=== PATIENT | male | born 1985 | race Caucasian/White ===

== ENCOUNTER 2017-09-25 11:58 | Emergency (ER) | payer MEDICAID ==
[~2017-09-25] VITALS: Ht 180.3 cm; Wt 91.0 kg
[2017-09-25] MEDS ORDERED: SODIUM CHLORIDE 0.9% 1,000 ML IV ONE (12:11)
[2017-09-25] MEDS ORDERED: KETOROLAC 30MG/ML VIAL IV STA (12:11)
[2017-09-25] MEDS ORDERED: ONDANSETRON HCL 4MG/2ML VIAL IV STA (12:11)
[2017-09-25] MEDS ORDERED: SUMATRIPTAN SUCCINATE 6MG/0.5ML VIAL SUBCUT ONE (12:15)
[2017-09-25 12:34] LABS: BASOPHILS % 1.1 % (0.0-2.0); EOSINOPHILS % 3.5 % (0.0-5.0); HEMATOCRIT. 43.4 % (42.0-52.0); HEMOGLOBIN. 14.9 g/dL (14.0-18.0); LYMPHOCYTES % 41.1 % (20.0-50.0); MEAN CORPUSCULAR HEMOGLOBIN 29.4 pg (28.0-32.0); MEAN CORPUSCULAR VOLUME 85.4 fL (80.0-94.0); MEAN PLATELET VOLUME 8.3 fl (7.4-10.4); MONOCYTES % 11.2 % (2.0-8.0); NEUTROPHILS % 43.1 % (40.0-76.0); PLATELET 360 x1000/uL (130-400); RED BLOOD CELL COUNT 5.08 mill/uL (4.7-6.1); RED CELL DISTRIBUTION WIDTH 13.1 % (11.6-14.6)
[2017-09-25 12:40] LABS: CHLORIDE 106 mEq/L (98-107)
[2017-09-25 12:41] LABS: INR 1.1
[2017-09-25 12:49] LABS: CARBON DIOXIDE 26 mEq/L (21-32)
[2017-09-25 15:50] VITALS: BP 147/89
== END 2017-09-25 15:56 | disposition home or self-care (01) ==
LOC: ER 12:46
DX: R51 Headache (principal)
CPT/HCPCS: 36415; 70450; 80053; 85025; 85610; 96361; 96372; 96374; 96375; 99285; J1885; J2405; J3030; J7030; Z7610

== ENCOUNTER 2017-09-27 11:52 | Emergency (ER) | payer MEDICAID ==
[~2017-09-27] VITALS: Ht 172.7 cm; Wt 91.0 kg
[2017-09-27 12:54] VITALS: BP 150/99
== END 2017-09-27 16:34 | disposition left against medical advice (07) ==
LOC: ER 12:00
DX: R51 Headache (principal); Z53.21 Procedure and treatment not carried out due to patient leaving prior to being seen by health care provider

== ENCOUNTER 2019-04-21 22:52 | Emergency (ER) | payer MEDICAID ==
[~2019-04-21] VITALS: Ht 180.3 cm; Wt 107.5 kg
[2019-04-22] MEDS ORDERED: SODIUM CHLORIDE 0.9% 1,000 ML IV ONE (00:31)
[2019-04-22] MEDS ORDERED: KETOROLAC 30MG/ML VIAL IV STA (00:31)
[2019-04-22 00:39] LABS: BASOPHILS % 0.9 % (0.0-2.0); EOSINOPHILS % 4.5 % (0.0-5.0); HEMOGLOBIN. 14.3 g/dL (14.0-18.0); LYMPHOCYTES % 41.6 % (20.0-50.0); MEAN CORPUSCULAR VOLUME 85.8 fL (80.0-94.0); MEAN PLATELET VOLUME 8.7 fl (7.4-10.4); MONOCYTES % 10.6 % (2.0-8.0); NEUTROPHILS % 42.4 % (40.0-76.0); PLATELET 344 x1000/uL (130-400); RED BLOOD CELL COUNT 4.77 mill/uL (4.7-6.1); RED CELL DISTRIBUTION WIDTH 12.9 % (11.6-14.6)
[2019-04-22 00:41] LABS: CHLORIDE 107 mEq/L (98-107)
[2019-04-22 04:02] VITALS: BP 129/92
== END 2019-04-22 04:23 | disposition home or self-care (01) ==
LOC: ER 22:52
DX: R10.11 Right upper quadrant pain (principal); I10 Essential (primary) hypertension
CPT/HCPCS: 36415; 76705; 80053; 83690; 85025; 96374; 99284; J1885; J7030

== ENCOUNTER 2019-06-12 13:47 | Emergency (ER) | payer MEDICAID, OTHER ==
[~2019-06-12] VITALS: Ht 177.8 cm; Wt 109.0 kg
[2019-06-12] MEDS ORDERED: MAGNESIUM/ALUMINUM HYDROXIDE/SIMETHICONE 30ML UDC PO STA (15:08)
[2019-06-12] MEDS ORDERED: VISCOUS LIDOCAINE 2% 15 ML UDC PO STA (15:08)
[2019-06-12] MEDS ORDERED: FAMOTIDINE 20MG TABLET PO ONE (15:15)
[2019-06-12] MEDS ORDERED: LIDOCAINE HCL 1% 20ML VIAL (Pyxis) INJ INFIL ONE (15:15)
[2019-06-12] MEDS ORDERED: ONDANSETRON 4MG ODT PO ONE (15:15)
[2019-06-12] MEDS ORDERED: PANTOPRAZOLE 40MG DR TABLET PO ONE (17:15)
[2019-06-12 17:30] VITALS: BP 131/78
== END 2019-06-12 17:30 | disposition home or self-care (01) ==
LOC: ER 13:47
DX: R10.13 Epigastric pain (principal); R11.0 Nausea; L02.31 Cutaneous abscess of buttock; I10 Essential (primary) hypertension
CPT/HCPCS: 10060; 76705; 99284; J3490; Q0162

== ENCOUNTER 2019-06-18 19:58 | Emergency (ER) | payer MEDICAID ==
[~2019-06-18] VITALS: Ht 177.8 cm; Wt 109.0 kg
[2019-06-18 22:57] VITALS: BP 119/77
== END 2019-06-18 23:00 | disposition home or self-care (01) ==
LOC: ER 19:58
DX: Z48.00 Encounter for change or removal of nonsurgical wound dressing (principal); A18.01 Tuberculosis of spine; I10 Essential (primary) hypertension; F17.200 Nicotine dependence, unspecified, uncomplicated
CPT/HCPCS: 99283

== ENCOUNTER 2019-07-21 20:06 | Emergency (ER) | payer MEDICAID ==
[~2019-07-21] VITALS: Ht 177.8 cm; Wt 100.0 kg
[2019-07-21 20:19] VITALS: BP 147/85
== END 2019-07-22 00:37 | disposition home or self-care (01) ==
LOC: ER 20:11
DX: L02.31 Cutaneous abscess of buttock (principal); I10 Essential (primary) hypertension
CPT/HCPCS: 99281

== ENCOUNTER 2019-09-22 19:27 | Emergency (ER) | payer MEDICAID ==
[~2019-09-22] VITALS: Ht 180.3 cm; Wt 106.0 kg
[2019-09-22] MEDS ORDERED: KETOROLAC 30MG/ML VIAL IV STA (22:44)
[2019-09-22] MEDS ORDERED: SODIUM CHLORIDE 0.9% 1,000 ML IV ONE (22:44)
[2019-09-22 23:25] VITALS: BP 156/111
[2019-09-22 23:32] LABS: BASOPHILS % 1.2 % (0.0-2.0); EOSINOPHILS % 3.2 % (0.0-5.0); HEMATOCRIT. 43.2 % (42.0-52.0); HEMOGLOBIN. 14.6 g/dL (14.0-18.0); MEAN CORPUSCULAR VOLUME 85.5 fL (80.0-94.0); MEAN PLATELET VOLUME 8.2 fl (7.4-10.4); MONOCYTES % 13.5 % (2.0-8.0); NEUTROPHILS % 41.1 % (40.0-76.0); PLATELET 429 x1000/uL (130-400); RED BLOOD CELL COUNT 5.05 mill/uL (4.7-6.1); RED CELL DISTRIBUTION WIDTH 12.8 % (11.6-14.6)
[2019-09-22 23:39] LABS: CHLORIDE 108 mEq/L (98-107)
[2019-09-22 23:42] LABS: PROTHROMBIN TIME 10.7 sec (9.6-11.0)
[2019-09-22 23:44] LABS: ETHANOL BLOOD < 10 mg/dL
[2019-09-22 23:48] LABS: CREATINE KINASE 271 IU/L (39-308)
[2019-09-22 23:51] LABS: CREATINE KINASE MB FRACTION 1.2 ng/mL (0.5-3.6)
[2019-09-22 23:52] LABS: CLARITY URINE CLEAR (CLEAR); COLOR URINE YELLOW (YELLOW); KETONES URINE TRACE (NEGATIVE); LEUKOCYTE ESTERASE URINE NEGATIVE (NEGATIVE); NITRITE URINE NEGATIVE (NEGATIVE); OCCULT BLOOD URINE NEGATIVE (NEGATIVE); PH URINE 5.5 (4.5-8.0); PROTEIN URINE NEGATIVE (NEGATIVE); SPECIFIC GRAVITY URINE 1.024 (1.005-1.030)
[2019-09-23 00:17] LABS: *AMPHETAMINES SCREEN URINE NEGATIVE (NEGATIVE); *BARBITURATES SCREEN URINE NEGATIVE (NEGATIVE); *BENZODIAZEPINES SCREEN URINE NEGATIVE (NEGATIVE); *COCAINE SCREEN URINE NEGATIVE (NEGATIVE); METHADONE URINE SCREEN NEGATIVE (NEGATIVE)
[2019-09-23 00:18] LABS: CANNABINOID URINE SCREEN PRESUMTIVE POSITIVE (NEGATIVE); OPIATES URINE SCREEN NEGATIVE (NEGATIVE); PHENCYCLIDINE URINE SCREEN NEGATIVE (NEGATIVE)
== END 2019-09-23 01:50 | disposition home or self-care (01) ==
LOC: ER 19:27
DX: R10.9 Unspecified abdominal pain (principal); I10 Essential (primary) hypertension; Z87.442 Personal history of urinary calculi
CPT/HCPCS: 36415; 71045; 74176; 80053; 80305; 80320; 81003; 82550; 82553; 83690; 84484; 85025; 85610; 93005; 96374; 99284; J1885; J7030; G0480

== ENCOUNTER 2019-09-30 15:33 | Emergency (ER) | payer MEDICAID ==
[~2019-09-30] VITALS: Ht 170.2 cm; Wt 104.0 kg
[2019-09-30 15:37] VITALS: BP 142/86
[2019-09-30] MEDS ORDERED: ACETAMINOPHEN 325MG TABLET PO STA (20:44)
[2019-09-30] MEDS ORDERED: ASPIRIN 81MG TABLET PO ONE (20:45)
[2019-09-30 21:28] LABS: BASOPHILS % 0.7 % (0.0-2.0); CHLORIDE 111 mEq/L (98-107); EOSINOPHILS % 3.5 % (0.0-5.0); HEMOGLOBIN. 14.3 g/dL (14.0-18.0); LYMPHOCYTES % 43.2 % (20.0-50.0); MEAN CORPUSCULAR HEMOGLOBIN 28.6 pg (28.0-32.0); MEAN CORPUSCULAR VOLUME 86.4 fL (80.0-94.0); MEAN PLATELET VOLUME 8.2 fl (7.4-10.4); MONOCYTES % 12.7 % (2.0-8.0); NEUTROPHILS % 39.9 % (40.0-76.0); PLATELET 409 x1000/uL (130-400); RED BLOOD CELL COUNT 4.98 mill/uL (4.7-6.1)
[2019-09-30 21:29] LABS: INR 1.1; PROTHROMBIN TIME 10.8 sec (9.6-11.0)
== END 2019-09-30 23:21 | disposition home or self-care (01) ==
LOC: ER 15:33
DX: R07.89 Other chest pain (principal); I10 Essential (primary) hypertension
CPT/HCPCS: 36415; 71045; 80053; 84484; 85025; 85610; 93005; 99284; Z7610

== ENCOUNTER 2019-11-17 15:52 | Emergency (ER) | payer MEDICAID, OTHER ==
[~2019-11-17] VITALS: Ht 172.7 cm; Wt 100.0 kg
[2019-11-17] MEDS ORDERED: MAGNESIUM/ALUMINUM HYDROXIDE/SIMETHICONE 30ML UDC PO ONE (17:15)
[2019-11-17] MEDS ORDERED: VISCOUS LIDOCAINE 2% 15 ML UDC PO ONE (17:15)
[2019-11-17] MEDS ORDERED: ASPIRIN 81MG TABLET PO ONE (17:15)
[2019-11-17 17:43] LABS: BASOPHILS % 0.9 % (0.0-2.0); EOSINOPHILS % 1.9 % (0.0-5.0); HEMATOCRIT. 44.1 % (42.0-52.0); HEMOGLOBIN. 15.3 g/dL (14.0-18.0); LYMPHOCYTES % 31.4 % (20.0-50.0); MEAN CORPUSCULAR HEMOGLOBIN 29.6 pg (28.0-32.0); MEAN CORPUSCULAR VOLUME 85.4 fL (80.0-94.0); MEAN PLATELET VOLUME 8.5 fl (7.4-10.4); MONOCYTES % 11.4 % (2.0-8.0); NEUTROPHILS % 54.4 % (40.0-76.0); PLATELET 352 x1000/uL (130-400); RED BLOOD CELL COUNT 5.16 mill/uL (4.7-6.1)
[2019-11-17 17:48] LABS: CHLORIDE 109 mEq/L (98-107)
[2019-11-17] MEDS ORDERED: KETOROLAC 60MG/2ML VIAL IM ONE (18:15)
[2019-11-17 19:30] VITALS: BP 140/90
== END 2019-11-17 19:32 | disposition home or self-care (01) ==
LOC: ER 15:52
DX: R07.89 Other chest pain (principal); I10 Essential (primary) hypertension; Z87.442 Personal history of urinary calculi
CPT/HCPCS: 36415; 71045; 80053; 83880; 84484; 85025; 93005; 96372; 99285; J1885; Z7610